=== PATIENT | male | born 1985 | race Caucasian/White ===

== ENCOUNTER 2017-11-14 19:48 | Emergency (ER) | payer OTHER ==
[~2017-11-14 19:48] MED LIST: EXCEDRIN MIGRA1 EAC1 PO; IBUPROFEN800 M1 PO; REGLAN10 M1 PO
[2017-11-14 20:08] VITALS: BP 154/93
--- NOTE | 2017-11-14 21:10 | RADIOLOGY REPORT ---
EXAMINATION: XR KNEE, RIGHT CLINICAL INFORMATION: Swelling. Question foreign body to knee COMPARISON: None TECHNIQUE: Four views of the right knee. FINDINGS: There may be minimal medial compartment joint space narrowing although this may be projectional. No fracture. No dislocation. Small suprapatellar joint effusion is present. There is a multi partite patella with separate ossification centers of the lateral aspect of the patella. These appear to be well corticated. IMPRESSION: No radiopaque foreign body seen. Small suprapatellar joint effusion. 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 These appear well-corticated and do not have the expected appearance of the fracture. Recommend correlation with point tenderness.
--- NOTE | 2017-11-14 21:23 | ED UPPER/LOWER EXTREMITY COMPL ---
History of Present Illness General Chief Complaint: Lower Extremity Problems Stated Complaint: PT IS HAVING RT KNEE PAIN Source: patient Exam Limitations: no limitations Vital Signs & Intake/Output Vital Signs & Intake/Output Vital Signs Date Time Temp Pulse Resp B/P B/P Pulse O2 O2 Flow FiO2 Mean Ox Delivery Rate 11/14 2200 97 Room Air 11/14 2007 98.4 74 22 154/93 98 Allergies Coded Allergies: No Known Allergies (10/20/17) Triage Note: PER PT PAIN TO RT KNEE + SWELLING DENIES INJURY BUT HAS HAD TO HAVE IT DRAINED IN PAST Triage Nurses Notes Reviewed? yes Onset: Gradual Duration: constant Timing: recent history Severity: moderate Severity Numbers: 5 HPI: Patient is a 32-year-old male who presents emergency room with concerns of a four-day history of right knee swelling and pain. 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 . Patient denies any mechanism injury or trauma Patient does state that a few months ago he had similar symptoms of pain and swelling where he was seen at [facility] received or thoracentesis with no findings of gout or infection Patient does state that he remotely he had a nail gun penetrating his right knee where in the emergency room they thought that patient had a fractured patella however he follow up with orthopedic doctor and stated that he has "abnormal kneecaps" (Tadeo Obrien) Reconcile Medications Aspirin/Acetaminophen/Caffeine (Excedrin Migraine Caplet) 250 MG-250 MG-65 MG TABLET 2 CAP PO PRN ESTEBAN (Reported) Ibuprofen 800 MG TABLET 1 TAB PO TID PRN PAIN Metoclopramide HCl (Reglan) 10 MG TABLET 1 TAB PO 4 TIMES/DAY PRN HEADACHE TAKE WITH 50MG BENADRYL (Gabino Ortiz MD) Past History Travel History Traveled to [place] past 21 day No Medical History Any Pertinent Medical History? see below for history Neurological: NONE EENT: NONE Cardiovascular: NONE Respiratory: NONE Gastrointestinal: NONE Hepatic: NONE Renal: NONE Musculoskeletal: NONE Psychiatric: NONE Endocrine: NONE Blood Disorders: NONE Cancer(s): NONE Surgical History Surgical History: non-contributory Psychosocial History What is your primary language Lao Tobacco Use: Never used Family History Hx Contributory? No (Tadeo Obrien) Review of Systems Review of Systems Constitutional: Reports: no symptoms. EENTM: Reports: no symptoms. Respiratory: Reports: no symptoms. Cardiovascular: Reports: no symptoms. Gastrointestinal/Abdominal: Reports: no symptoms. Genitourinary: Reports: no symptoms. Musculoskeletal: Reports: see HPI, joint pain, joint swelling. Skin: Reports: no symptoms. Neurological/Psychological: Reports: no symptoms. Hematologic/Endocrine: Reports: no symptoms. Immunological: Reports: no symptoms. All Other Systems: Reviewed and Negative (Tadeo Obrien) Physical Exam Physical Exam General Appearance: no apparent distress, alert, comfortable Head: atraumatic Eyes: Bilateral: normal appearance. Ears, Nose, Throat: hearing grossly normal Neck: normal inspection Cardiovascular/Respiratory: no respiratory distress Neurologic/Tendon: normal sensation, normal motor functions, normal tendon functions, responds to pain, no evidence tendon injury, no pulse deficit Skin: intact, normal color, warm/dry Comments: Right knee noted suprapatellar swelling and point tenderness decreased active range of motion noted 45 of flexion and full extension No erythema no warmth no fluctuance (Tadeo Obrien) Progress Differential Diagnosis: arterial insufficiency, compartment syndrome, contusion, dislocation, DVT, fracture, gout, septic arthritis, sprain, tendon injury Plan of Care: Orders Procedure Date/time Status Durable Medical Equipment 11/14 2146 Active On examination patient has concerns of effusion however no concerns of septic arthritis or infectious process Due to history of present illness and exam findings patient most likely has bursitis due to patient being on his knees at work due to the onset of this pain on Saturday, no concerns of a mechanism injury or fracture Was likely from previous emergency room visit of the nail gun and the ER evaluation of concern of patellar fracture however the orthopedic doctor the patient followed up with most likely was assessing patient's right knee for Multi-partite patella due to patient's current knee x-ray findings An Ezio wrap was placed to the right knee pre-and post-neurovascular was intact crutches were administered Patient was strongly advised to follow-up with discharge instructions and plan Patient during the emergency room visit was offered a arthrocentesis for therapeutic IMPROVEMENT OF HIS SYMPTOMS however he declined this Diagnostic Imaging: Viewed by Me: Radiology Read. Radiology Impression: no fracture Comments: PATIENT: SWEETIE STEVENS PRESENT AGE: 32 PATIENT ACCOUNT NO: [id number] : 85 LOCATION: [facility] ORDERING PHYSICIAN: Gabino Ortiz MD SERVICE DATE: 11/14/17 EXAM TYPE: RAD - XRY-KNEE, RIGHT EXAMINATION: XR KNEE, RIGHT CLINICAL INFORMATION: Swelling. Question foreign body to knee COMPARISON: None TECHNIQUE: Four views of the right knee. FINDINGS: There may be minimal medial compartment joint space narrowing although this may be projectional. No fracture. No dislocation. Small suprapatellar joint effusion is present. There is a multi partite patella with separate ossification centers of the lateral aspect of the patella. These appear to be well corticated. IMPRESSION: No radiopaque foreign body seen. Small suprapatellar joint effusion. 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 These appear well-corticated and do not have the expected appearance of the fracture. Recommend correlation with point tenderness. DICTATED BY: Phi Morales MD DATE/TIME DICTATED:11/14/172101 CYBER SECURITY ENGINEER:MICHAEL DATE/TIME TRANSCRIBED:11/14/172101 (Tadeo Obrien) Departure Departure Disposition: HOME OR SELF CARE Condition: Stable Clinical Impression Primary Impression: Right knee pain Referrals: Ladonna WEBB,Patrick Prabhakar (PCP/Family) Michael Kunz MD Additional Instructions: As discussed begin icing the area directly 20 minutes every 2 hours, begin the prescription meloxicam for pain and inflammation, begin THE EZIO WRAP FOR swelling begin use the crutches UNTIL YOU CAN walk without pain, if symptoms worsen return to the emergency room. prescription is waiting at [facility]. If no better in one week follow up with orthopedic Dr. Kunz. Departure Forms: Customer Survey General Discharge Information (Tadeo Obrien) PA/DIRECTOR OF [employer] Co-Sign Statement Statement: ED Attending supervision documentation- I saw and evaluated the patient. I have also reviewed all the pertinent lab results and diagnostic results. I agree with the findings and the plan of care as documented in the PA's/[employer]'s documentation. x I have reviewed the ED Record and agree with the PA's/[employer]'s documentation. [] Additions or exceptions (if any) to the PAs/DIRECTOR [employer]'s note and plan are summarized below: [] (Angel WEBB,Gabino)
[2017-11-14] MEDS ORDERED: MOBIC15 M1 PO (21:46)
== END 2017-11-14 22:24 ==
LOC: ERH 19:48
DX: M25.561 Pain in right knee (principal)
CPT/HCPCS: 73560-RT